=== PATIENT | female | born 1960 | race Caucasian/White ===

== ENCOUNTER 2024-03-18 07:04 | Outpatient (CLI) | payer BC, SELFPAY ==
--- NOTE | ~2024-03-18 | MR_ITS ---
MRI of the left shoulder Technique: Axial proton-density fat-sat images, coronal proton density fat-sat and T2 fat-sat images, and sagittal T1-weighted and T2 fat-sat images were acquired. Clinical History: Pain Findings: There is minimal degenerative changes AC joint. Coracoclavicular, coracoacromial, coracohum eral ligaments are intact. Supraspinatus and infraspinatus tendons are intact, without partial or full-thickness tear. Subscapul chava tendon is intact with minimal tendinosis. Tendon of long head of the biceps is intact. There is superior labral tear extending to the anterosuperior portion. Inferior glenohumeral ligament is intact. No significant effusion or degenerative change of the gleno humeral joint. No significant fluid distention of the subacromial/subdeltoid bursa. No muscle atrophy or edema. Impression: Superior labral tear extending to the anterosuperior portion. Reviewed, dictated and finalized at [facility]. NTOLOGICAL NURSE PRACTITIONER Impression: Superior labral tear extending to the anterosuperior portion.
== END 2024-03-18 07:05 | disposition home or self-care (01) ==
PROVIDERS: PCP Internal Medicine; Visit Provider Physician Assistant
DX: S43.432A Superior glenoid labrum lesion of left shoulder, initial encounter (principal); X58.XXXA Exposure to other specified factors, initial encounter
CPT/HCPCS: 73221

== ENCOUNTER 2024-10-21 10:33 | Outpatient (CLI) | payer MEDICARE, SELFPAY ==
--- NOTE | ~2024-10-21 | MR_ITS ---
EXAMINATION: MR abdomen wo/w con DATE: 10/21/2024 11:36 INDICATION: Complex renal cyst TECHNIQUE: Magnetic resonance imaging (MRI) of the abdomen was performed without and with 15 mL Multi tim intravenous contrast. Sequences included coronal T2-weighted SS-FSE, coronal and axial FS 2D-F IESTA, axial STIR FSE, axial T2-weighted SS-FSE, axial T2-weighted FS SS-FSE, axial diffusion-weighte d SE, axial dual-echo T1-weighted FSPGR, and axial and coronal T1-weighted LAVA. Postcontrast axial T 1-weighted LAVA images were obtained in a time course. Postcontrast coronal T1-weighted LAVA images w ere obtained. COMPARISON: 10/17/2011 FINDINGS: Heart size is normal. No pericardial or pleural effusion. Bandlike airspace disease along the right m ajor fissure, likely atelectasis. No pericardial or pleural effusion. The metallic artifact consisten t with cholecystectomy clips at the gallbladder fossa. Liver, spleen, pancreas and bilateral adrenal glands are normal. There are bilateral renal cysts the largest on the right measuring 3.6 cm. Visuali zed portions of bowels are unremarkable. Mild thoracolumbar dextrocurvature. Normal bone marrow signa l throughout. IMPRESSION: 1. Bilateral renal cysts. No abnormally enhancing renal lesions identified. 2. Mild bandlike lung disease along the right major fissure most likely atelectasis but could conside r further evaluation with low-dose noncontrast chest CT. Reviewed, dictated and finalized at location [facility]. IMPRESSION: 1. Bilateral renal cysts. No abnormally enhancing renal lesions identified. 2. Mild bandlike lung disease along the right major fissure most likely atelect asis but could consider further evaluation with low-dose noncontrast chest CT.
== END 2024-10-21 10:34 | disposition home or self-care (01) ==
LOC: MICIMG 10:37
PROVIDERS: PCP Internal Medicine; Visit Provider Nurse Practitioner
DX: N28.1 Cyst of kidney, acquired (principal); R91.8 Other nonspecific abnormal finding of lung field
CPT/HCPCS: 74183; A9577

== ENCOUNTER 2024-11-12 11:29 | Outpatient (CLI) | payer MEDICARE, SELFPAY ==
--- NOTE | ~2024-11-12 | CT_ITS ---
CT Scan of the Chest without Contrast: Clinical Indication: Lung cancer screening, nicotine dependence Technique: Contiguous sections were acquired throughout the chest without intravenous contrast. Dose reduction technique was used on this scan by utilizing automated exposure control and iterative recon struction technique. The dose-length product (DLP) was 43.93 mGy-cm. Findings: There is no evidence of any significant mediastinal, hilar or axillary lymphadenopathy. Coronary sujey ry calcifications are present.. There is no evidence of pleural or pericardial effusion. No pulmonary nodule evident. There is linear scarring at the right middle lobe. Images through the upper abdomen reveal no abnormalities. Impression: Lung RADS 1: Negative. [address] advised. Reviewed, dictated and finalized at location . Impression: Lung RADS 1: Negative. [address] advised.
== END 2024-11-12 11:30 | disposition home or self-care (01) ==
PROVIDERS: PCP Internal Medicine; Visit Provider Internal Medicine
DX: Z12.2 Encounter for screening for malignant neoplasm of respiratory organs (principal); Z87.891 Personal history of nicotine dependence
CPT/HCPCS: 71271